=== PATIENT | female | born 1955 | race Caucasian/White ===

== ENCOUNTER → 2016-09-28 | Day surgery (SDC) | payer MEDICARE, BC ==
[2016-09-28 14:16] VITALS: BP 124/55; PULSE 65; RESP 18; TEMP 97.4; BMI 32.2
--- NOTE | 2016-09-28 16:09 | MM ---
EXAMINATION TYPE: MG stereo VAD BX RT DATE OF EXAM: 09/28/2016 COMPARISON: 09/13/2016 CLINICAL HISTORY: 60-year-old female with a right breast microcalcifications referred for biopsy. TECHNIQUE: Stereotactic guided core biopsy of the right breast. FINDINGS: The procedure of stereotactic guided core biopsy was explained to the patient. Benefits, alternatives, and risks were discussed. An informed consent was then obtained. [facility] pathway [facility] was chosen. Shortness pathway was a lateral approach. I performed the localization followed by the remainder of the procedure. An 8 gauge vacuum assisted biopsy gun was used to obtain 4 core samples. The patient tolerated the procedure well without any immediate complication. The patient was kept in the radiology department for short stay after the procedure and then discharged home in stable condition. Targeted calcifications are identified in specimen mammogram. Post biopsy mammogram shows the clip to appear in satisfactory position relative to the targeted area of concern on the preprocedure images. One residual linear calcification is present just anterior to the clip. IMPRESSION: SUCCESSFUL, UNCOMPLICATED STEREOTACTIC GUIDED CORE BIOPSY OF LINEAR RIGHT BREAST MICROCALCIFICATIONS; FULL PATHOLOGY RESULTS TO FOLLOW. Pathology Results: Benign BREAST, RIGHT, CORE BIOPSY: BENIGN BREAST WITH SCAR, PERIDUCTAL FIBROSIS WITH DUCT OBLITERATION, CHRONIC INFLAMMATION AND CALCIFICATIONS. BACKGROUND FIBROCYSTIC CHANGES. Recommendation Follow up mammogram of the right breast in 6 months. [facility]
== END ==
LOC: RADMAMWWP 12:12
PROVIDERS: ATTEND Surgery
DX: N60.31 Fibrosclerosis of right breast (principal); R92.1 Mammographic calcification found on diagnostic imaging of breast; R92.8 Other abnormal and inconclusive findings on diagnostic imaging of breast; Z85.3 Personal history of malignant neoplasm of breast; R92.0 Mammographic microcalcification found on diagnostic imaging of breast
CPT/HCPCS: 88305; 88342; 19081; A4648; J2001